=== PATIENT | female | born 2000 | race Caucasian/White ===

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

== ENCOUNTER 2023-06-25 16:07 | Emergency (ER) | payer MEDICAID ==
[~2023-06-25] VITALS: Ht 160 cm; Wt 56.9 kg
[2023-06-25] MEDS ORDERED: meclizine 12.5mg tablet PO ONE (16:50)
[2023-06-25] MEDS ORDERED: LORazepam 1 MG tablet PO ONE (17:45)
[2023-06-25] MEDS ORDERED: MECL-302 PO (17:53)
[2023-06-25 18:08] VITALS: BP 101/52; PULSE 80; RESP 14; O2SAT 99
== END 2023-06-25 18:18 | disposition home or self-care (01) ==
LOC: ER 16:07
DX: H81.10 Benign paroxysmal vertigo, unspecified ear (principal); Z88.1 Allergy status to other antibiotic agents; Z88.8 Allergy status to other drugs, medicaments and biological substances; Z79.899 Other long term (current) drug therapy
CPT/HCPCS: 99284; J8597

== ENCOUNTER 2024-05-16 10:35 | Emergency (ER) | payer MEDICAID ==
[~2024-05-16] VITALS: Ht 157.5 cm; Wt 47.7 kg
[~2024-05-16 10:35] MED LIST changes: +MECL-302 PO
[2024-05-16 11:01] LABS: BILIRUBIN,URINE NEGATIVE (Neg); CLARITY,URINE CLOUDY (Clear); COLOR,URINE YELLOW (Yellow); GLUCOSE, URINE NEGATIVE (Neg); KETONES,URINE 15 mg/dl (Neg); LEUKOCYTE ESTERASE ,URINE SMALL (Neg); NITRITES, URINE POSITIVE (Neg); OCCULT BLOOD,URINE LARGE (Neg); PH,URINE 6.5 (4.8-8.0); PROTEIN,URINE >=300 mg/dl (Neg)
[2024-05-16 11:03] LABS: URINE HCG NEGATIVE (NEG)
[2024-05-16 11:05] LABS: UA COLLECTION TYPE CLN CATCH MIDSTREAM
[2024-05-16 11:07] LABS: BACTERIA,URINE 2+ /HPF (Neg); MUCUS STRANDS NONE SEEN /LPF (Neg); SQUAMOUS EPITHELIAL CELL,UR FEW /LPF (FEW); TRANSITIONAL EPI CELLS,URINE FEW /HPF; WBC CLUMPS,URINE MANY /HPF (NEGATIVE); WBC,URINE TNTC /HPF (0-4)
[2024-05-16] MEDS ORDERED: CIPR-259 PO (12:09)
[2024-05-16] MEDS ORDERED: PHEN-824 PO (12:10)
[2024-05-16] MEDS ORDERED: IBUP-1985 PO (12:10)
[2024-05-16] MEDS ORDERED: ACET-1025 PO (12:10)
[2024-05-16] MEDS: ibuprofen tablet 400 MG TABLET PO STA (12:17)
[2024-05-16] MEDS: phenazopyridine 100mg tablet PO STA (12:17)
[2024-05-16] MEDS: acetaminophen 325mg tablet PO STA (12:18)
[2024-05-16] MEDS: CefTRIAXone 1000mg IM Kit (w/lidocaine diluent) IM STA (12:19)
[2024-05-16 12:29] VITALS: BP 112/74; PULSE 78; RESP 18; TEMP 97.4; O2SAT 97
[2024-05-19 07:18] LABS: CHLAMYDIA TRACHOMATIS, NAA Negative (Negative)
== END 2024-05-16 12:31 | disposition home or self-care (01) ==
LOC: ER 10:35
DX: N10 Acute pyelonephritis (principal); N39.0 Urinary tract infection, site not specified; Z88.1 Allergy status to other antibiotic agents; Z88.5 Allergy status to narcotic agent; Z87.440 Personal history of urinary (tract) infections
CPT/HCPCS: 36415; 81001; 81025; 87077; 87088; 87186; 87491; 87591; 96372; 99284; J0696

== ENCOUNTER 2024-06-23 17:36 | Emergency (ER) | payer MEDICAID ==
[~2024-06-23] VITALS: Ht 157.5 cm; Wt 53.6 kg
[~2024-06-23 17:36] MED LIST changes: +CIPR-259 PO; +IBUP-1985 PO; +PHEN-824 PO
[2024-06-23 17:37] VITALS: BP 146/92; PULSE 76; RESP 18; TEMP 98.5; O2SAT 98
[2024-06-24] MEDS ORDERED: CYCL-1 PO (11:38)
[2024-06-24] MEDS ORDERED: IBUP-2697 PO (11:38)
[2024-06-24] MEDS ORDERED: IBUP-1984 PO (11:38)
[2024-06-24] MEDS ORDERED: ACET-890 PO (11:38)
== END 2024-06-23 20:18 | disposition left against medical advice (07) ==
LOC: ER 17:36
DX: M25.539 Pain in unspecified wrist (principal); Z53.21 Procedure and treatment not carried out due to patient leaving prior to being seen by health care provider; Y08.89XA Assault by other specified means, initial encounter; Y93.89 Activity, other specified; Y92.89 Other specified places as the place of occurrence of the external cause; Y99.8 Other external cause status

== ENCOUNTER 2024-06-24 09:18 | Emergency (ER) | payer MEDICAID ==
[~2024-06-24] VITALS: Ht 157.5 cm; Wt 47.5 kg
[2024-06-24 09:20] VITALS: BP 118/65; PULSE 84; RESP 16; TEMP 98.5; O2SAT 97
[2024-06-24] MEDS ORDERED: ACET-890 PO (11:38)
[2024-06-24] MEDS ORDERED: IBUP-2697 PO (11:38)
[2024-06-24] MEDS ORDERED: CYCL-1 PO (11:38)
[2024-06-24] MEDS ORDERED: IBUP-1984 PO (11:38)
== END 2024-06-24 12:59 | disposition home or self-care (01) ==
LOC: ER 09:18
DX: S40.012A Contusion of left shoulder, initial encounter (principal); S50.12XA Contusion of left forearm, initial encounter; S00.01XA Abrasion of scalp, initial encounter; Z88.1 Allergy status to other antibiotic agents; Z79.1 Long term (current) use of non-steroidal anti-inflammatories (NSAID); Z79.899 Other long term (current) drug therapy; Y08.89XA Assault by other specified means, initial encounter; Y93.89 Activity, other specified; Y92.89 Other specified places as the place of occurrence of the external cause; Y99.8 Other external cause status
CPT/HCPCS: 70450; 73030; 73090; 99284

== ENCOUNTER 2024-07-22 12:28 | Emergency (ER) | payer MEDICAID ==
[~2024-07-22] VITALS: Ht 157.5 cm; Wt 52.3 kg
[~2024-07-22 12:28] MED LIST changes: +CYCL-1 PO; +IBUP-2697 PO
[2024-07-22] MEDS: ketorolac trometh 30MG/ML vial 30 MG/ML VIAL IM ONE (13:42)
[2024-07-22] MEDS ORDERED: NAPR-1480 PO (14:32)
[2024-07-22 16:06] VITALS: BP 124/87; PULSE 65; RESP 16; TEMP 98.9; O2SAT 99
== END 2024-07-22 16:00 | disposition home or self-care (01) ==
LOC: ER 12:28 → EEVIPCON 12:28 → ER 16:00
DX: M25.512 Pain in left shoulder (principal); R51.9 Headache, unspecified; Z88.1 Allergy status to other antibiotic agents; Z88.8 Allergy status to other drugs, medicaments and biological substances; Y08.89XA Assault by other specified means, initial encounter; Y93.89 Activity, other specified; Y92.89 Other specified places as the place of occurrence of the external cause; Y99.8 Other external cause status
CPT/HCPCS: 73030; 96372; 99283; J1885; A4565